=== PATIENT | male | born 1990 | race Two or more races ===

== ENCOUNTER → 2018-01-31 | Outpatient (CLI) | payer OTHER | END | disposition home or self-care (01) | LOC: SURG 14:08 | PROVIDERS: ATTEND Anesthesiology | DX: M51.36 Other intervertebral disc degeneration, lumbar region (principal); M47.816 Spondylosis without myelopathy or radiculopathy, lumbar region; G47.33 Obstructive sleep apnea (adult) (pediatric); Z79.899 Other long term (current) drug therapy | CPT/HCPCS: 99204 ==

== ENCOUNTER → 2018-03-21 | Outpatient (CLI) | payer OTHER ==
[~2018-03-21] MED LIST: BUPIVACAINE MPF 0.25% 10 ML VIAL. ONE; LIDOCAINE 1% PF 30 ML VIAL. ONE
== END | disposition home or self-care (01) ==
LOC: SURG 09:30
PROVIDERS: ATTEND Anesthesiology
DX: M47.816 Spondylosis without myelopathy or radiculopathy, lumbar region (principal); M51.36 Other intervertebral disc degeneration, lumbar region; G47.30 Sleep apnea, unspecified; J30.2 Other seasonal allergic rhinitis; Z72.89 Other problems related to lifestyle; Z98.52 Vasectomy status; Z88.8 Allergy status to other drugs, medicaments and biological substances; Z79.899 Other long term (current) drug therapy
CPT/HCPCS: 64493; 64494; J2001; J3490

== ENCOUNTER 2018-11-17 15:18 | Emergency (ER) | payer OTHER ==
[2018-11-17 15:34] VITALS: BP 125/78
--- NOTE | 2018-11-17 15:46 | PHYS DOC ---
Past History Past Medical History: Depression Past Surgical History: No Surgical History Smoking: Non-smoker Alcohol Use: Occasionally Drug Use: None Adult General Chief Complaint Chief Complaint: NECK INJURY HPI HPI Patient is a 27-year-old male presenting with low neck pain after lifting and moving a heavy pole trying to put it into a mounting bracket in the ground. Patient believes he may been looking up when he felt this pop with the immediate pain. There has been no weakness, numbness, tingling, paresthesias, nor loss of bowel or bladder control. Increased pain with movement. No pain medicines been taken. This happened shortly prior to arrival[] Review of Systems Review of Systems Constitutional: Denies fever or chills [] Eyes: Denies change in visual acuity, redness, or eye pain [] HENT: Denies nasal congestion or sore throat [] Respiratory: Denies cough or shortness of breath [] Cardiovascular: No chest pain or palpitations[] GI: Denies abdominal pain, nausea, vomiting, bloody stools or diarrhea [] : Denies dysuria or hematuria [] Musculoskeletal: Denies back pain or joint pain, see history of present illness [] Integument: Denies rash or skin lesions [] Neurologic: Denies headache, focal weakness or sensory changes [] Endocrine: Denies polyuria or polydipsia [] All other systems were reviewed and found to be within normal limits, except as documented in this note. Allergies Allergies Allergies Coded Allergies Type Severity Reaction Last Updated Verified No Known Drug Allergies 11/17/18 No Physical Exam Physical Exam Constitutional: Well developed, well nourished, no acute distress, non-toxic appearance. [] HENT: Normocephalic, atraumatic, bilateral external ears normal, oropharynx moist, no oral exudates, nose normal. [] Eyes: PERRLA, EOMI, conjunctiva normal, no discharge. [] Neck: Limited range of motion secondary to pain. There is no step-off or crepitus. Tenderness low were cervical spine and left sided paraspinal musculature. Full active range of motion of the upper and lower extremities. Normal gait. supple, no stridor. [] Cardiovascular:Heart rate regular rhythm, no murmur [] Lungs & Thorax: Bilateral breath sounds clear to auscultation [] Abdomen: Not examined[] Skin: Warm, dry, no erythema, no rash. [] Back: No tenderness, no CVA tenderness. [] Extremities: No tenderness, no cyanosis, no clubbing, ROM intact, no edema. [] Neurologic: Alert and oriented X 3, normal motor function, normal sensory function, no focal deficits noted. [] Psychologic: Affect normal, judgement normal, mood normal. [] Current Patient Data Vital Signs Vital Signs Date Time Temp Pulse Resp B/P (MAP) Pulse Ox O2 Delivery O2 Flow Rate FiO2 11/17/18 15:34 97.3 79 18 96 Room Air EKG EKG [] Radiology/Procedures Radiology/Procedures PROCEDURE: CT CERVICAL SPINE WO CONTRAST CT scan of the cervical spine without contrast 11/17/2018 Clinical history: Low neck pain. Patient felt a pop when moving a heavy pole. Technique: Unenhanced, contiguous, 0.625 mm axial sections were obtained through the cervical spine. Axial, coronal and sagittal reconstructed images were obtained. One or more of the following individualized dose reduction techniques were utilized for this study: 1. Automated exposure control. 2. Adjustment of the mA and/or kV according to patient size. 3. Use of iterative reconstruction technique. Findings: Sagittal and coronal reconstructed images demonstrate mild lateral curvature of the cervical spine, convex to the left. There is slight reversal of the normal cervical lordosis. No fracture or subluxation of the cervical vertebrae is seen. No significant degenerative changes are noted.[] Course & Med Decision Making Course & Med Decision Making Pertinent Labs and Imaging studies reviewed. (See chart for details) ED course and medical decision making: There is no evidence of a fracture subluxation. No evidence of neurologic injury. No evidence of a cord syndrome. Patient arrived, was placed in bed, and tolerated exam well. He was transported to and from radiology with any complications. 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 After return of an findings, these were discussed with the patient who voiced understanding. All questions were answered. He was discharged in improved condition.[] Dragon Disclaimer Dragon Disclaimer This electronic medical record was generated, in whole or in part, using a voice recognition dictation system. Departure Departure: Impression: Primary Impression: Acute cervical sprain Disposition: HOME, SELF-CARE Condition: STABLE Referrals: ROCIO HOUSTON (PCP) Follow-up in 2 days Patient Instructions: Cervical Strain and Sprain with [facility] Additional Instructions: Follow-up with your primary care physician or Worker's Comp. physician in 2 days. Take the medication as prescribed. Return to the ER if worsening pain, weakness, or any other concerns. Scripts Hydrocodone Bit/Acetaminophen (NORCO 5-325 TABLET) 1 Each Tablet 1 TAB PO Q4-6HRS for severe pain, #20 TAB Prov: SKYE MENDOSA DO 11/17/18 Orphenadrine Citrate (ORPHENADRINE CITRATE) 100 Mg Tablet.er 100 MG PO BID for BACK PAIN, #20 TAB.SR Prov: SKYE MENDOSA DO 11/17/18 Meloxicam (MELOXICAM) 7.5 Mg Tablet 7.5 MG PO DAILY for PAIN, #20 TAB Prov: SKYE MENDOSA DO 11/17/18 Problem Qualifiers Primary Impression: Acute cervical sprain Encounter type: initial encounter Qualified Codes: S13.9XXA - Sprain of joints and ligaments of unspecified parts of neck, initial encounter SKYE MENDOSA DO Nov 17, 2018 15:46
[2018-11-17] MEDS ORDERED: ACETAMINOPHEN 325 MG TABLET PO ONE (16:00)
--- NOTE | 2018-11-17 16:07 | RAD ---
CT scan of the cervical spine without contrast 11/17/2018 Clinical history: Low neck pain. Patient felt a pop when moving a heavy pole. Technique: Unenhanced, contiguous, 0.625 mm axial sections were obtained through the cervical spine. Axial, coronal and sagittal reconstructed images were obtained. One or more of the following individualized dose reduction techniques were utilized for this study: 1. Automated exposure control. 2. Adjustment of the mA and/or kV according to patient size. 3. Use of iterative reconstruction technique. Findings: Sagittal and coronal reconstructed images demonstrate mild lateral curvature of the cervical spine, convex to the left. There is slight reversal of the normal cervical lordosis. No fracture or subluxation of the cervical vertebrae is seen. No significant degenerative changes are noted. Impression: No fracture or subluxation of the cervical vertebra is identified. Electronically signed by: Albert Cuevas MD (11/17/2018 4:04 PM) [id number]
[2018-11-17] MEDS ORDERED: ORPH-16 PO (16:19)
[2018-11-17] MEDS ORDERED: MELO7.5T29 PO (16:19)
[2018-11-17] MEDS ORDERED: HYDR-3165 PO (16:19)
== END 2018-11-17 16:26 | disposition home or self-care (01) ==
LOC: ER 15:18
DX: S13.4XXA Sprain of ligaments of cervical spine, initial encounter (principal); X50.9XXA Other and unspecified overexertion or strenuous movements or postures, initial encounter; Y93.89 Activity, other specified; Y92.89 Other specified places as the place of occurrence of the external cause; Y99.8 Other external cause status
CPT/HCPCS: 72125; 99284-25